=== PATIENT | male | born 1960 | race Caucasian/White ===

== ENCOUNTER 2016-12-11 14:55 | Emergency (ER) | payer BC ==
[~2016-12-11 14:55] MED LIST: CALCIUM CITRATE; CAPOTEN50 MG PO; CINNAMON500 MG PO; CYCLOBENZAPRINE10 MG PO; FLOMAX 0.40.4 MG/CAP PO; GLUCOSAMINE SUL; HYDROCHLOROTH12.5 MG PO; LEVAQUIN 5500 MG/TA1 PO; METFORMIN500 MG PO; OMEGA 31000 MG PO; ONE DAILY1 TA1 PO; PROBIOTIC FORMU1 CAP PO; SIMVASTATIN40 MG PO
[2016-12-11] MEDS ORDERED: FARXIGA10 MG PO (15:03)
[2016-12-11] MEDS ORDERED: GLUCOPHAGE1000 MG PO (15:03)
[2016-12-11] MEDS ORDERED: ENALAPRIL20 MG PO (15:04)
[2016-12-11] MEDS ORDERED: KETOROLAC TROME10 MG PO (16:41)
== END 2016-12-11 16:57 | disposition home or self-care (01) ==
LOC: ED 14:55
DX: M94.0 Chondrocostal junction syndrome [Tietze] (principal); R07.9 Chest pain, unspecified
CPT/HCPCS: J1885

== ENCOUNTER 2018-02-09 17:03 | Inpatient (IN) | payer BC ==
[~2018-02-09] VITALS: Ht 175.3 cm; Wt 97.0 kg
[~2018-02-09 17:03] MED LIST changes: +ENALAPRIL20 MG PO; +FARXIGA10 MG PO; +GLUCOPHAGE1000 MG PO; +KETOROLAC TROME10 MG PO
[2018-02-09] MEDS ORDERED: DHA PO (17:16)
[2018-02-09] MEDS ORDERED: NATURE'S BLEND500 M1 PO (17:16)
[2018-02-09] MEDS ORDERED: CENTRUM MEN'S1 EACH PO (17:16)
[2018-02-09] MEDS ORDERED: MELOXICAM15 MG PO (17:17)
[2018-02-09 17:51] LABS: HEMATOCRIT 49.6 % (42.0-52.0); MEAN CELL VOLUME 89 fl (78-100); MEAN CORPUSCULAR HEMOGLOBIN 30 pg (27-31); MEAN CORPUSCULAR HGB CONC 34 g/dL (33-37); MEAN PLATELET VOLUME 9.7 fl (7.4-10.4); PLATELET COUNT 181 K/mm3 (130-400); RED BLOOD COUNT 5.59 M/mm3 (4.20-5.60); RED CELL DISTRIBUTION WIDTH 12.9 % (11.5-14.5); WHITE BLOOD COUNT 11.4 K/mm3 (4.8-10.8)
[2018-02-09 18:02] LABS: BAND 6 % (0-10); LYMPHOCYTE 5 % (20-51); NEUTROPHILS 83 % (42-75)
[2018-02-09 18:03] LABS: MONOCYTE 2 % (3-10)
[2018-02-09 19:22] LABS: ALBUMIN 4.2 g/dL (3.5-5.0); CALCIUM 9.4 mg/dL (8.4-10.2); POTASSIUM 4.2 mmol/L (3.6-5.0); TOTAL BILIRUBIN 1.3 mg/dL (0.2-1.3); TOTAL PROTEIN 7.8 g/dL (6.3-8.2)
[2018-02-09] MEDS ORDERED: ZOFRAN ODT4 MG PO (20:10)
[2018-02-09] MEDS ORDERED: NORCO 325 MG-51 TA1 PO (20:10)
[2018-02-09 20:17] LABS: LIPASE 1166 U/L (23-300)
--- NOTE | 2018-02-09 20:23 | NUR ---
PATIENT ADMITTED TO ACUTE ROOM 208 AT THIS TIME. PATIENT TRANSFERS TO WHEELCHAIR AND INTO ROOM BED WITH STANDBY ASSIST ONLY. PATIENT DOES NOT APPEAR TO BE IN ANY OBVIOUS DISTRESS AT THIS TIME, BUT IS CONSIDERABLY WEAK AND DROWSY. PATIENT IS ALSO MILDLY CONFUSED, ANSWERING WITH REPLIES TO QUESTIONS POSED BY THIS RN AND HIS WITH CONVERSATION THAT DOESN'T MATCH THE QUESTIONS. PATIENT STATES HE JUST WANTS TO SLEEP. PATIENT HAS AN IV TO [facility] THAT IS SALINE LOCKED, WITH PLANS TO START FLUIDS ONCE IN ROOM. PATIENT'S ACCOMPANIES HIM TO THE ROOM, AND PROVIDES SOME INFORMATION REGARDING MEDICATIONS, THEN STATES SHE IS GOING HOME AND WILL BE BACK IN THE MORNING. PATIENT DENIES HAVING TO URINATE. PATIENT CHANGES HIS POSITION IN BED INDPENDENTLY. PATIENT ORIENTED TO ROOM, HOSPITAL ROUTINES, BED CONTROLS AND EXPECTATIONS A PATIENT. BED ALARM SET. BED RAILS UP X2. PATIENT DOES NOT WISH TO GET INTO A GOWN OR SOCKS AT THIS TIME. PATIENT REQUESTS A 2ND PILLOW FOR HIS LEGS TO REST ON FOR BACK PAIN CONTROL. PATIENT ALSO REQUESTS A FAN. PATIENT IS UNSURE OF HIS MEDICATIONS, SO AND OTHER HOUSE OCCUPANTS QUESTIONED. CALL LIGHT WITHIN REACH. CLOSE MONITORING AND HOURLY ROUNDING IMPLEMENTED.
[2018-02-09 21:01] VITALS: BP 137/70
[2018-02-09 21:07] VITALS: BP 137/70
--- NOTE | 2018-02-09 22:05 | NUR ---
PATIENT'S CALLS AND PROVIDES THIS RN AN UPDATE ON THE VASOT[facility].
[2018-02-09 23:40] VITALS: BP 125/71
[2018-02-10 03:40] VITALS: BP 124/76
--- NOTE | 2018-02-10 04:14 | NUR ---
PATIENT CONTINUES TO REST QUIETLY IN BED. PATIENT DOES NOT APPEAR TO BE IN ANY OBVIOUS DISTRESS AT THIS TIME. PATIENT CHANGES HIS POSITION IN BED INDEPENDENTLY THROUGHOUT THE NIGHT. NS CONTINUES TO INFUSE INTO IV LOCATED IN LAC. HOB ELEVATED. BED RAILS UP X2. BED ALARM ARMED AT ALL TIMES. CALL LIGHT WITHIN REACH. CLOSE MONITORING AND HOURLY ROUNDING CONTINUE.
--- NOTE | 2018-02-10 06:47 | NUR ---
REPORT GIVEN TO RADHA Perry RN.
[2018-02-10 07:08] LABS: EOS # 0.1 (0.04-0.40); EOS % 1.6 % (0.0-4.0); HEMATOCRIT 42.7 % (42.0-52.0); HEMOGLOBIN 14.7 g/dL (13.5-18.0); LYMPH# 0.9 (1.50-4.00); MEAN CELL VOLUME 91 fl (78-100); MEAN CORPUSCULAR HEMOGLOBIN 31 pg (27-31); MEAN CORPUSCULAR HGB CONC 34 g/dL (33-37); MEAN PLATELET VOLUME 9.6 fl (7.4-10.4); MONO # 0.4 (0.20-0.80); NEU # 4.3 (1.40-6.50); PLATELET COUNT 157 K/mm3 (130-400); RED BLOOD COUNT 4.71 M/mm3 (4.20-5.60); RED CELL DISTRIBUTION WIDTH 12.7 % (11.5-14.5); WHITE BLOOD COUNT 5.7 K/mm3 (4.8-10.8)
[2018-02-10 07:12] LABS: URINE APPEARANCE CLEAR; URINE BILIRUBIN NEGATIVE (NEGATIVE); URINE BLOOD NEGATIVE (NEGATIVE); URINE COLOR YELLOW; URINE KETONE NEGATIVE (NEGATIVE); URINE LEUKOCYTE ESTERASE NEGATIVE (NEGATIVE); URINE NITRATE NEGATIVE (NEGATIVE); URINE PROTEIN(semi-quant) NEGATIVE (NEGATIVE); URINE UROBILINOGEN NORMAL (NORMAL); URINE WBC 0-1 /hpf (0-3)
[2018-02-10 07:15] VITALS: BP 118/73
--- NOTE | 2018-02-10 07:45 | NUR ---
Pt resting in bed. Reports not sleeping well and tossing and turning alot. States 3/10 pain in back and 2/10 in stomach. States stomach is growling and he would like to try something for breakfast if allowed. BS audible. Kunal Mills in to see pt
[2018-02-10 11:00] VITALS: BP 106/58
[2018-02-10 15:02] VITALS: BP 111/60
[2018-02-10 18:21] VITALS: BP 128/76
--- NOTE | 2018-02-10 19:33 | NUR ---
REPORT PROVIDED TO SHAQUILLE LION.
--- NOTE | 2018-02-10 19:40 | NUR ---
Resting in bed awake and a/o x 3. Daughter at bed side. Denies having any pain or nausea. IV of NS at 250mls/hr.
[2018-02-10 22:38] VITALS: BP 135/73
--- NOTE | 2018-02-11 01:59 | NUR ---
Q hourly checks done. IV of NS continues to infuse at 250mls/hr. Bed alarm set. Pt has repositioned self in bed. Pt has used call light when needing to ambulate to the bathroom. 0150 Ambulated to the bathroom with one stand by assist, gait steady. Denied pain or nausea.
[2018-02-11 03:08] VITALS: BP 122/71
[2018-02-11 06:14] LABS: HEMATOCRIT 38.4 % (42.0-52.0); MEAN CELL VOLUME 91 fl (78-100); MEAN CORPUSCULAR HEMOGLOBIN 31 pg (27-31); MEAN CORPUSCULAR HGB CONC 34 g/dL (33-37); MEAN PLATELET VOLUME 9.6 fl (7.4-10.4); PLATELET COUNT 135 K/mm3 (130-400); RED BLOOD COUNT 4.22 M/mm3 (4.20-5.60); RED CELL DISTRIBUTION WIDTH 12.7 % (11.5-14.5); WHITE BLOOD COUNT 3.5 K/mm3 (4.8-10.8)
[2018-02-11 06:33] VITALS: BP 138/80
[2018-02-11 06:38] LABS: BAND 1 % (0-10); LYMPHOCYTE 27 % (20-51); MONOCYTE 13 % (3-10); NEUTROPHILS 57 % (42-75)
[2018-02-11 06:43] LABS: ALBUMIN 2.7 g/dL (3.5-5.0); BUN/CREATININE RATIO 14.3 (6.0-26.0); CALCIUM 6.9 mg/dL (8.4-10.2); POTASSIUM 3.8 mmol/L (3.6-5.0); TOTAL BILIRUBIN 0.5 mg/dL (0.2-1.3); TOTAL PROTEIN 5.2 g/dL (6.3-8.2)
--- NOTE | 2018-02-11 07:20 | NUR ---
Report given to Merline Rudd RN
[2018-02-11] MEDS ORDERED: KETOROLAC10 MG PO (08:55)
--- NOTE | 2018-02-11 09:00 | NUR ---
Pt tolerates bland diet well. Denies any pain nausea or vomitting. Pt verbalizes he is ready for discharge and that his daughter will be in later to pick him up
--- NOTE | 2018-02-11 11:08 | NUR ---
DISCHARGE INSTRUCTIONS REVIEWED WITH PT. ALL QUESTIONS ANSWERED REGARDING BLAND DIET AND SPECIAL INSTRUCTIONS/GUIDELINES SENT WITH HIM VIA HIS REQUEST. PT AMBULATES OUT AT THIS TIME WITH DAUGHTER AND ALL BELONGINGS
[2018-02-11 11:09] VITALS: BP 144/87
== END 2018-02-11 11:08 | disposition home or self-care (01) | DRG 440 ==
LOC: ED 17:03 → MED/SURG 20:23
PROVIDERS: Physician Assistant; ADMIT Nurse Practitioner Primary Care
DX: K85.90 Acute pancreatitis without necrosis or infection, unspecified (principal); I10 Essential (primary) hypertension; E11.9 Type 2 diabetes mellitus without complications
CPT/HCPCS: J1885; J2270; J2405; J7030; Q9967

== ENCOUNTER → 2018-10-04 | Outpatient (CLI) | payer BC ==
[~2018-10-04] MED LIST changes: +CENTRUM MEN'S1 EACH PO; +DHA PO; +KETOROLAC10 MG PO; +MELOXICAM15 MG PO; +NATURE'S BLEND500 M1 PO; +NORCO 325 MG-51 TA1 PO; +ZOFRAN ODT4 MG PO
[2018-10-05 09:52] LABS: EOS # 0.3 (0.04-0.40); EOS % 4.9 % (0.0-4.0); HEMATOCRIT 45.8 % (42.0-52.0); HEMOGLOBIN 15.5 g/dL (13.5-18.0); LYMPH# 1.9 (1.50-4.00); MEAN CELL VOLUME 89 fl (78-100); MEAN CORPUSCULAR HEMOGLOBIN 30 pg (27-31); MEAN CORPUSCULAR HGB CONC 34 g/dL (33-37); MEAN PLATELET VOLUME 9.7 fl (7.4-10.4); MONO # 0.5 (0.20-0.80); NEU # 2.8 (1.40-6.50); PLATELET COUNT 224 K/mm3 (130-400); RED BLOOD COUNT 5.15 M/mm3 (4.20-5.60); RED CELL DISTRIBUTION WIDTH 12.7 % (11.5-14.5); WHITE BLOOD COUNT 5.5 K/mm3 (4.8-10.8)
[2018-10-05 09:58] LABS: ALBUMIN 4.4 g/dL (3.5-5.0); CALCIUM 9.5 mg/dL (8.4-10.2); POTASSIUM 4.4 mmol/L (3.6-5.0); TOTAL BILIRUBIN 0.9 mg/dL (0.2-1.3); TOTAL PROTEIN 7.4 g/dL (6.3-8.2)
== END ==
LOC: LAB 08:17
DX: C61 Malignant neoplasm of prostate (principal); E11.65 Type 2 diabetes mellitus with hyperglycemia; I10 Essential (primary) hypertension; E78.2 Mixed hyperlipidemia; Z79.899 Other long term (current) drug therapy

== ENCOUNTER → 2019-01-02 | Outpatient (CLI) | payer BC | LOC: LAB 08:16 | DX: C61 Malignant neoplasm of prostate (principal) ==

== ENCOUNTER → 2019-10-02 | Outpatient (CLI) | payer BC ==
[2019-10-02 08:11] LABS: ALBUMIN 4.3 g/dL (3.5-5.0)
[2019-10-02 08:12] LABS: POTASSIUM 4.3 mmol/L (3.5-5.1)
[2019-10-02 08:13] LABS: CALCIUM 9.3 mg/dL (8.3-10.5)
[2019-10-02 08:14] LABS: TOTAL PROTEIN 7.2 g/dL (6.4-8.3)
[2019-10-02 08:16] LABS: TOTAL BILIRUBIN 0.9 mg/dL (0.2-1.2)
[2019-10-02 08:26] LABS: URINE APPEARANCE CLEAR; URINE BILIRUBIN NEGATIVE (NEGATIVE); URINE BLOOD NEGATIVE (NEGATIVE); URINE COLOR YELLOW; URINE KETONE NEGATIVE (NEGATIVE); URINE LEUKOCYTE ESTERASE NEGATIVE (NEGATIVE); URINE NITRATE NEGATIVE (NEGATIVE); URINE PROTEIN(semi-quant) NEGATIVE (NEGATIVE); URINE UROBILINOGEN NORMAL (NORMAL); URINE WBC 0-1 /hpf (0-3)
== END ==
LOC: LAB 07:50
PROVIDERS: Emergency Medicine
DX: E11.65 Type 2 diabetes mellitus with hyperglycemia (principal); R97.20 Elevated prostate specific antigen [PSA]; Z79.899 Other long term (current) drug therapy

== ENCOUNTER 2019-11-28 14:25 | Emergency (ER) | payer BC ==
[~2019-11-28 14:25] MED LIST changes: -DHA PO; +FISH OIL 1000MG1 CAP PO
[2019-11-28] MEDS ORDERED: FARXIGA10 MG PO (14:41)
[2019-11-28] MEDS ORDERED: SIMVASTATIN40 M1 PO (14:42)
[2019-11-28] MEDS ORDERED: CITRACAL + D M1 EACH PO (14:44)
[2019-11-28] MEDS ORDERED: TYLENOL EXTRA500 M2 PO (15:28)
[2019-11-28 15:43] LABS: EOS # 0.3 (0.04-0.40); EOS % 3.9 % (0.0-4.0); HEMATOCRIT 44.5 % (42.0-52.0); HEMOGLOBIN 15.1 g/dL (13.5-18.0); LYMPH# 2.5 (1.50-4.00); MEAN CELL VOLUME 89 fl (78-100); MEAN CORPUSCULAR HEMOGLOBIN 30 pg (27-31); MEAN CORPUSCULAR HGB CONC 34 g/dL (33-37); MEAN PLATELET VOLUME 9.3 fl (7.4-10.4); MONO # 0.6 (0.20-0.80); NEU # 3.5 (1.40-6.50); PLATELET COUNT 180 K/mm3 (130-400); RED BLOOD COUNT 5.01 M/mm3 (4.20-5.60); RED CELL DISTRIBUTION WIDTH 12.7 % (11.5-14.5)
[2019-11-28 15:53] LABS: ALBUMIN 4.1 g/dL (3.5-5.0)
[2019-11-28 15:54] LABS: POTASSIUM 4.1 mmol/L (3.5-5.1); SODIUM 140 mmol/L (136-145)
[2019-11-28 15:55] LABS: CALCIUM 9.6 mg/dL (8.3-10.5)
[2019-11-28 15:56] LABS: GLUCOSE 95 mg/dL (75-110); TOTAL PROTEIN 6.8 g/dL (6.4-8.3)
[2019-11-28 15:57] LABS: CARBON DIOXIDE 24 mmol/L (22-29)
[2019-11-28 15:58] LABS: TOTAL BILIRUBIN 0.6 mg/dL (0.2-1.2)
[2019-11-28 16:01] LABS: AST-SGOT 24 U/L (5-34)
[2019-11-28 16:02] LABS: ALT/SGPT 38 U/L (0-55)
[2019-11-28 16:11] LABS: TROPONIN-I < 0.03 ng/mL (<0.030)
[2019-11-28 16:27] VITALS: BP 159/95
== END 2019-11-28 16:41 | disposition home or self-care (01) ==
LOC: ED 14:25
PROVIDERS: Family Medicine
DX: R07.89 Other chest pain (principal); R00.2 Palpitations; E11.9 Type 2 diabetes mellitus without complications; I10 Essential (primary) hypertension; E78.5 Hyperlipidemia, unspecified; Z79.84 Long term (current) use of oral hypoglycemic drugs

== ENCOUNTER → 2021-07-06 | Outpatient (CLI) | payer BC ==
[~2021-07-06] MED LIST changes: +CITRACAL + D M1 EACH PO; +SIMVASTATIN40 M1 PO; +TYLENOL EXTRA500 M2 PO
== END ==
LOC: LAB 16:40
DX: Z20.822 Contact with and (suspected) exposure to COVID-19 (principal)

== ENCOUNTER → 2021-10-15 | Outpatient (REF) | payer BC | LOC: LAB 12:38 → EDSTATUS 12:42 | DX: Z00.00 Encounter for general adult medical examination without abnormal findings (principal); Z12.11 Encounter for screening for malignant neoplasm of colon; C61 Malignant neoplasm of prostate ==

== ENCOUNTER → 2022-03-23 | Outpatient (CLI) | payer BC ==
[2022-03-23 07:53] LABS: BASO # 0.01 K/mm3 (0.02-0.10); EOS # 0.36 K/mm3 (0.04-0.40); EOS % 6.9 % (0.0-4.0); HEMATOCRIT 44.8 % (42.0-52.0); HEMOGLOBIN 15.3 g/dL (13.5-18.0); LYMPH# 1.81 K/mm3 (1.50-4.00); MEAN CELL VOLUME 90 fl (78-100); MEAN CORPUSCULAR HEMOGLOBIN 31 pg (27-31); MEAN CORPUSCULAR HGB CONC 34 g/dL (33-37); MEAN PLATELET VOLUME 8.9 fl (7.4-10.4); MONO # 0.48 K/mm3 (0.20-0.80); NEU # 2.53 K/mm3 (1.40-6.50); PLATELET COUNT 206 K/mm3 (130-400); RED BLOOD COUNT 4.97 M/mm3 (4.20-5.60); RED CELL DISTRIBUTION WIDTH 12.4 % (11.5-14.5); WHITE BLOOD COUNT 5.2 K/mm3 (4.8-10.8)
[2022-03-23 08:06] LABS: ALBUMIN 4.3 g/dL (3.5-5.0); POTASSIUM 4.4 mmol/L (3.5-5.1)
[2022-03-23 08:07] LABS: CALCIUM 9.5 mg/dL (8.3-10.5)
[2022-03-23 08:08] LABS: TOTAL PROTEIN 7.2 g/dL (6.4-8.3)
[2022-03-23 08:10] LABS: TOTAL BILIRUBIN 0.9 mg/dL (0.2-1.2)
== END ==
LOC: LAB 07:39
PROVIDERS: Internal Medicine
DX: Z00.00 Encounter for general adult medical examination without abnormal findings (principal); C61 Malignant neoplasm of prostate

== ENCOUNTER → 2023-08-11 | Day surgery (SDC) | payer BC | END | disposition home or self-care (01) | LOC: MSO 07:12 | DX: Z12.11 Encounter for screening for malignant neoplasm of colon (principal); K57.30 Diverticulosis of large intestine without perforation or abscess without bleeding; C61 Malignant neoplasm of prostate | CPT/HCPCS: 00812; J2704; J7120 ==

== ENCOUNTER → 2023-10-11 | Outpatient (CLI) | payer BC ==
[2023-10-11 09:14] LABS: BASO # 0.01 K/mm3 (0.02-0.10); EOS # 0.14 K/mm3 (0.04-0.40); EOS % 2.8 % (0.0-4.0); HEMATOCRIT 45.6 % (42.0-52.0); HEMOGLOBIN 15.5 g/dL (13.5-18.0); MEAN CELL VOLUME 92 fl (78-100); MEAN CORPUSCULAR HEMOGLOBIN 31 pg (27-31); MEAN CORPUSCULAR HGB CONC 34 g/dL (33-37); MEAN PLATELET VOLUME 8.8 fl (7.4-10.4); MONO # 0.37 K/mm3 (0.20-0.80); PLATELET COUNT 205 K/mm3 (130-400); RED BLOOD COUNT 4.96 M/mm3 (4.20-5.60); RED CELL DISTRIBUTION WIDTH 12.1 % (11.5-14.5); WHITE BLOOD COUNT 4.9 K/mm3 (4.8-10.8)
[2023-10-11 09:32] LABS: ALBUMIN 4.6 g/dL (3.4-4.8)
[2023-10-11 09:33] LABS: CALCIUM 9.5 mg/dL (8.3-10.5)
[2023-10-11 09:34] LABS: TOTAL PROTEIN 7.3 g/dL (6.2-8.1)
[2023-10-11 09:36] LABS: TOTAL BILIRUBIN 0.95 mg/dL (0.2-1.2)
[2023-10-11 09:42] LABS: MAGNESIUM 2.13 mg/dL (1.60-2.60)
== END ==
LOC: LAB 08:50 → EDSTATUS 14:24
PROVIDERS: Internal Medicine
DX: Z11.59 Encounter for screening for other viral diseases (principal); C61 Malignant neoplasm of prostate; I10 Essential (primary) hypertension; E78.00 Pure hypercholesterolemia, unspecified; E11.9 Type 2 diabetes mellitus without complications

== ENCOUNTER → 2023-10-13 | Outpatient (CLI) | payer BC | LOC: RAD 08:55 → LAB 08:55 | DX: M19.012 Primary osteoarthritis, left shoulder (principal); M19.011 Primary osteoarthritis, right shoulder ==

== ENCOUNTER → 2024-04-03 | Outpatient (CLI) | payer BC ==
[2024-04-03 08:10] LABS: BASO # 0.01 K/mm3 (0.02-0.10); EOS # 0.14 K/mm3 (0.04-0.40); EOS % 2.5 % (0.0-4.0); HEMATOCRIT 42.9 % (42.0-52.0); HEMOGLOBIN 14.8 g/dL (13.5-18.0); LYMPH# 1.69 K/mm3 (1.50-4.00); MEAN CELL VOLUME 92 fl (78-100); MEAN CORPUSCULAR HEMOGLOBIN 32 pg (27-31); MEAN CORPUSCULAR HGB CONC 35 g/dL (33-37); MEAN PLATELET VOLUME 9.1 fl (7.4-10.4); MONO # 0.42 K/mm3 (0.20-0.80); NEU # 3.37 K/mm3 (1.40-6.50); PLATELET COUNT 200 K/mm3 (130-400); RED BLOOD COUNT 4.68 M/mm3 (4.20-5.60); RED CELL DISTRIBUTION WIDTH 12.5 % (11.5-14.5); WHITE BLOOD COUNT 5.6 K/mm3 (4.8-10.8)
[2024-04-03 08:16] LABS: ALBUMIN 4.5 g/dL (3.4-4.8)
[2024-04-03 08:17] LABS: CALCIUM 9.8 mg/dL (8.3-10.5)
[2024-04-03 08:20] LABS: TOTAL BILIRUBIN 0.8 mg/dL (0.2-1.2)
[2024-04-03 08:21] LABS: URINE APPEARANCE CLEAR (CLEAR); URINE COLOR YELLOW (YELLOW); URINE PROTEIN(semi-quant) TRACE (NEGATIVE)
[2024-04-03 08:22] LABS: URINE BILIRUBIN NEGATIVE (NEGATIVE); URINE BLOOD NEGATIVE (NEGATIVE); URINE GLUCOSE 3+ (NEGATIVE); URINE KETONE 1+ (NEGATIVE); URINE LEUKOCYTE ESTERASE NEGATIVE (NEGATIVE); URINE NITRATE NEGATIVE (NEGATIVE); URINE WBC 0-1 /hpf (0-3)
[2024-04-03 08:25] LABS: MAGNESIUM 1.99 mg/dL (1.60-2.60)
== END ==
LOC: LAB 07:52
PROVIDERS: Internal Medicine
DX: Z00.00 Encounter for general adult medical examination without abnormal findings (principal); Z12.11 Encounter for screening for malignant neoplasm of colon; C61 Malignant neoplasm of prostate

== ENCOUNTER → 2024-04-05 | Outpatient (CLI) | payer BC | LOC: LAB 08:15 | DX: Z12.11 Encounter for screening for malignant neoplasm of colon (principal) ==

== ENCOUNTER 2024-08-31 21:22 | Observation (INO) | payer BC ==
[~2024-08-31] VITALS: Ht 175.3 cm; Wt 85.7 kg
[2024-08-31 22:08] LABS: BASO # 0.01 K/mm3 (0.02-0.10); EOS # 0.21 K/mm3 (0.04-0.40); EOS % 3.2 % (0.0-4.0); HEMOGLOBIN 15.4 g/dL (13.5-18.0); MEAN CELL VOLUME 90 fl (78-100); MEAN CORPUSCULAR HEMOGLOBIN 31 pg (27-31); MEAN CORPUSCULAR HGB CONC 34 g/dL (33-37); MEAN PLATELET VOLUME 9.3 fl (7.4-10.4); MONO # 0.55 K/mm3 (0.20-0.80); NEU # 2.93 K/mm3 (1.40-6.50); PLATELET COUNT 204 K/mm3 (130-400); RED BLOOD COUNT 4.98 M/mm3 (4.20-5.60); RED CELL DISTRIBUTION WIDTH 12.2 % (11.5-14.5); WHITE BLOOD COUNT 6.6 K/mm3 (4.8-10.8)
[2024-08-31 22:14] LABS: ALBUMIN 4.5 g/dL (3.4-4.8)
[2024-08-31 22:15] LABS: CALCIUM 10.1 mg/dL (8.3-10.5)
[2024-08-31 22:16] LABS: TOTAL PROTEIN 7.2 g/dL (6.2-8.1)
[2024-08-31 22:18] LABS: TOTAL BILIRUBIN 0.8 mg/dL (0.2-1.2)
[2024-08-31 22:21] LABS: D-DIMER 0.34 mg/L FEU (0.15-0.50)
[2024-09-01 00:20] VITALS: BP 136/78
[2024-09-01 03:29] VITALS: BP 136/77
[2024-09-01 07:00] VITALS: BP 155/85
[2024-09-01 07:55] LABS: BASO # 0.01 K/mm3 (0.02-0.10); EOS # 0.21 K/mm3 (0.04-0.40); EOS % 4.2 % (0.0-4.0); HEMATOCRIT 45.7 % (42.0-52.0); HEMOGLOBIN 15.7 g/dL (13.5-18.0); LYMPH# 2.04 K/mm3 (1.50-4.00); MEAN CELL VOLUME 90 fl (78-100); MEAN CORPUSCULAR HEMOGLOBIN 31 pg (27-31); MEAN CORPUSCULAR HGB CONC 34 g/dL (33-37); MEAN PLATELET VOLUME 9.4 fl (7.4-10.4); NEU # 2.33 K/mm3 (1.40-6.50); PLATELET COUNT 180 K/mm3 (130-400)
[2024-09-01 08:01] LABS: ALBUMIN 4.2 g/dL (3.4-4.8)
[2024-09-01 08:02] LABS: SODIUM 140 mmol/L (136-145)
[2024-09-01 08:03] LABS: CALCIUM 9.6 mg/dL (8.3-10.5)
[2024-09-01 08:04] LABS: GLUCOSE 122 mg/dL (75-110); TOTAL PROTEIN 6.6 g/dL (6.2-8.1)
[2024-09-01 08:05] LABS: CARBON DIOXIDE 24 mmol/L (23-31)
[2024-09-01 08:06] LABS: TOTAL BILIRUBIN 1.1 mg/dL (0.2-1.2)
[2024-09-01 08:09] LABS: AST-SGOT 22 U/L (5-34)
[2024-09-01 08:11] LABS: ALT/SGPT 25 U/L (0-55)
[2024-09-01 08:27] LABS: TROPONIN-I < 0.030 ng/mL (0.00-0.033)
[2024-09-01] MEDS ORDERED: metFORMIN 500 MG TAB PO SCH (09:00)
[2024-09-01] MEDS ORDERED: Enalapril 5 MG TAB PO SCH (09:00)
[2024-09-01] MEDS ORDERED: Calcium Carb/Vit D3 500 mg-5 mcg(200 Units) TAB PO SCH (09:00)
[2024-09-01] MEDS ORDERED: Omega-3 Fatty Acid Esters 1,000 MG CAP PO SCH (09:00)
[2024-09-01] MEDS ORDERED: Multivitamin TAB PO SCH (09:00)
[2024-09-01] MEDS ORDERED: Acetaminophen 325 MG TAB PO PRN (09:30)
[2024-09-01 11:38] VITALS: BP 131/80
[2024-09-01] MEDS ORDERED: Metoprolol Tartrate 50 MG TAB PO SCH (11:45)
[2024-09-01 13:03] VITALS: BP 129/74
[2024-09-01] MEDS ORDERED: NITROGLYCERIN0.4 M1 SL (13:06)
[2024-09-01] MEDS ORDERED: ASPIRIN E.C. 8181 MG PO (13:07)
[2024-09-01] MEDS ORDERED: TOPROL XL 25MG25 MG PO (13:11)
== END 2024-09-01 13:45 | disposition home or self-care (01) ==
LOC: ED 21:22 → MED/SURG 23:39
PROVIDERS: ADMIT Physician Assistant
DX: I20.9 Angina pectoris, unspecified (principal); I10 Essential (primary) hypertension; E78.5 Hyperlipidemia, unspecified; E11.9 Type 2 diabetes mellitus without complications; Z79.84 Long term (current) use of oral hypoglycemic drugs; Z79.899 Other long term (current) drug therapy
CPT/HCPCS: G0378; J1650

== ENCOUNTER → 2024-10-02 | Outpatient (CLI) | payer BC ==
[~2024-10-02] MED LIST changes: +ASPIRIN E.C. 8181 MG PO; +NITROGLYCERIN0.4 M1 SL; +TOPROL XL 25MG25 MG PO
[2024-10-02 14:29] LABS: BASO # 0.01 K/mm3 (0.02-0.10); EOS # 0.19 K/mm3 (0.04-0.40); EOS % 3.1 % (0.0-4.0); HEMATOCRIT 44.5 % (42.0-52.0); HEMOGLOBIN 15.1 g/dL (13.5-18.0); LYMPH# 2.26 K/mm3 (1.50-4.00); MEAN CELL VOLUME 92 fl (78-100); MEAN CORPUSCULAR HEMOGLOBIN 31 pg (27-31); MEAN CORPUSCULAR HGB CONC 34 g/dL (33-37); MEAN PLATELET VOLUME 9.1 fl (7.4-10.4); MONO # 0.48 K/mm3 (0.20-0.80); PLATELET COUNT 201 K/mm3 (130-400); RED BLOOD COUNT 4.84 M/mm3 (4.20-5.60); RED CELL DISTRIBUTION WIDTH 12.6 % (11.5-14.5); WHITE BLOOD COUNT 6.1 K/mm3 (4.8-10.8)
[2024-10-02 16:24] LABS: ALBUMIN 4.6 g/dL (3.4-4.8)
[2024-10-02 16:25] LABS: CALCIUM 9.7 mg/dL (8.3-10.5)
[2024-10-02 16:26] LABS: TOTAL PROTEIN 7.2 g/dL (6.2-8.1)
[2024-10-02 16:28] LABS: TOTAL BILIRUBIN 1.1 mg/dL (0.2-1.2)
[2024-10-02 16:33] LABS: MAGNESIUM 1.95 mg/dL (1.60-2.60)
== END ==
LOC: LAB 14:12
PROVIDERS: Internal Medicine
DX: C61 Malignant neoplasm of prostate (principal); I10 Essential (primary) hypertension; E11.9 Type 2 diabetes mellitus without complications; E78.00 Pure hypercholesterolemia, unspecified